=== PATIENT | male | born 1960 | race Caucasian/White ===

== ENCOUNTER 2020-03-25 08:01 | Emergency (ER) | payer MEDICAID ==
[~2020-03-25] VITALS: Ht 177.8 cm; Wt 94.1 kg
[2020-03-25 09:30] VITALS: BP 148/96
== END 2020-03-25 09:31 | disposition home or self-care (01) ==
LOC: ER 08:02
DX: R20.2 Paresthesia of skin (principal); R07.89 Other chest pain; F41.0 Panic disorder [episodic paroxysmal anxiety]
CPT/HCPCS: 93005; 99283